=== PATIENT | male | born 1970 | race Caucasian/White ===

== ENCOUNTER 2017-07-19 13:34 | Outpatient (CLI) | payer OTHER ==
--- NOTE | 2017-07-20 08:50 | RAD ---
THREE VIEWS LEFT WRIST: INDICATION: Pain. COMPARISON: No prior comparison. FINDINGS: Mild osteoarthritis is present. No fracture or dislocation. IMPRESSION: No acute osseous abnormality of the left wrist. POS: [facility]
== END 2017-07-19 13:35 | disposition home or self-care (01) ==
LOC: RAD-FRANK 13:34
PROVIDERS: ATTEND Nurse Practitioner Family
DX: M25.532 Pain in left wrist (principal)